=== PATIENT | female | born 1995 | race Caucasian/White ===

== ENCOUNTER 2022-06-26 16:49 | Emergency (ER) | payer OTHER ==
[~2022-06-26] VITALS: Ht 157.5 cm; Wt 140.6 kg
[2022-06-26 17:32] VITALS: BP 144/80
--- NOTE | 2022-06-26 17:40 | NUR ---
pt called by adrien, no answer at this time. pt also not in radiology
--- NOTE | 2022-06-26 17:56 | NUR ---
PT TAKEN TO XRAY
[2022-06-26] MEDS ORDERED: IBUP-1842 PO (18:42)
== END 2022-06-26 18:49 | disposition home or self-care (01) ==
LOC: MED 16:49
DX: M79.672 Pain in left foot (principal); Z79.1 Long term (current) use of non-steroidal anti-inflammatories (NSAID)
CPT/HCPCS: 73610; 99283